=== PATIENT | female | born 1980 | race Native Hawaiian/Other Pacific Islander ===

== ENCOUNTER 2022-02-20 09:45 | Emergency (ER) | payer OTHER ==
[~2022-02-20] VITALS: Ht 167.6 cm; Wt 102.1 kg
[2022-02-20 09:52] VITALS: BP 123/90; TEMP 99.2
[2022-02-20 10:41] LABS: POTASSIUM 3.5 mmol/L (3.6-5.2)
[2022-02-20 10:42] LABS: PLATELET COUNT 292 K/uL (152-353)
== END 2022-02-20 13:50 | disposition home or self-care (01) ==
LOC: ED 09:45
PROVIDERS: Emergency Medicine Emergency Medical Services
DX: K12.2 Cellulitis and abscess of mouth (principal); K04.7 Periapical abscess without sinus
CPT/HCPCS: 80048; 81025; 85027; 87040; 96360; 96365; 96375; 99284; J2270; J2405; J3370; Q9963